=== PATIENT | female | born 1965 | race Caucasian/White ===

== ENCOUNTER 2018-09-24 08:55 | Outpatient (CLI) | payer OTHER ==
--- NOTE | 2018-09-24 10:12 | CT ---
CT ABDOMEN AND PELVIS WITH AND WITHOUT IV CONTRAST: Provided Clinical History: Renal mass on outside imaging. FINDINGS: The visualized lung bases are clear of significant opacity. There is a heterogeneously enhancing solid appearing left renal mass. This measures approximately 5.8 x 4.5 cm in greatest transverse dimensions. There are several smaller foci of diminished attenuation involving the left kidney which are too small to definitely characterize. There is a 1.2 cm hypodens e exophytic mass arising from the posterior aspect of the right kidney. This demonstrates precontrast Hounsfield units of approximately 15, venous phase Hounsfield units of approximately 24, and delayed phase Hounsfield units of approximately 19. Several smaller foci of diminished attenuation also seen involving the right kidney, too small to definitely characterized. The liver, spleen, pancreas, and adrenal glands appear unremarkable. The left renal vein demonstrates no filling defect. The delayed images demonstrate effacement of portions of the left renal collectin g system adjacent to the mass. No filling defect is clearly seen within the remainder of the renal co llecting systems, ureters, or urinary bladder. This mass abuts the medial and inferior aspects of the spleen with lack of clear fat plain between the two. There is no bowel dilatation, inflammatory fat stranding, free fluid or lymph node enlargement appare nt. The osseous structures demonstrate no concerning osteoblastic or osteolytic lesions. Changes of central hernia repair is seen. IMPRESSION: 1. Large solid left renal mass, compatible with malignancy. Urology consultation is recommended. 2. Foci of diminished attenuation involving each kidney, the majority of which are too small to defin itely characterize. There is a 1.2 cm exophytic mass arising from the posterior right kidney which pr obably reflects a mildly complicated cyst with pseudo enhancement on the post contrast images. Furthe r evaluation with ultrasound or close follow up recommended. Code T
[2018-09-24] MEDS ORDERED: ISOVUE-370 76%-LOCM 1 ML ONE (16:28)
== END 2018-09-24 08:56 | disposition home or self-care (01) ==
LOC: BICCT 08:55
PROVIDERS: ATTEND Family Medicine
DX: N28.89 Other specified disorders of kidney and ureter (principal)
CPT/HCPCS: 74178

== ENCOUNTER 2019-12-31 10:25 | Outpatient (CLI) | payer OTHER ==
--- NOTE | 2019-12-31 12:48 | CT ---
EXAM: CT ABDOMEN AND PELVIS HISTORY: Abdominal pain. Previous left nephrectomy. COMPARISON: 09/24/2018. PROCEDURE: Multiple contiguous axial images were obtained and a CT of the abdomen and pelvis with IV contrast. C oronal reformats were performed. Patient had an allergic reaction after IV contrast administration. Patient developed erythema, hives and difficulty breathing. FINDINGS: Lower Chest: Within normal limits. Vessels: Normal caliber aorta. No periaortic fat stranding. Atherosclerosis is noted in the infrarena l abdominal aorta. Heart: Normal heart size. No significant pericardial fluid. Abdomen: Portal vein:Patent. Gallbladder: Surgically absent. Liver: within normal limits. Pancreas: within normal limits. Spleen: within normal limits. Adrenals: within normal limits. Kidneys: Surgically absent left kidney. Right kidney has appropriate enhancement. Small subcentimeter hypodensity in the right renal cortex, measuring 0.7 cm cannot be further characterized. 0.4 cm hypodensity in the anterior right renal cortex near the upper pole is also noted. This lesion cannot be further characterized. Exophytic hypodensity emanating from the midpole of the right kidney measures 1.5 x 1.7 cm with an attenuation coefficient of 25 Hounsfield units. Complex cyst is favored . No evidence of a right-sided obstructive uropathy. Peritoneum: No ascites or free air, no fluid collection. Bowel: No evidence of bowel obstruction. Ileocecal junction is unremarkable. Normal caliber appendix. Scattered fecal material in a nondistended, nondilated colon. Mesentery and Retroperitoneum: Enlarged peripancreatic/periportal lymph nodes are nonspecific. These lymph nodes measure 2.3 to 2.8 cm in maximum dimension. Lymphadenopathy is similar to the previous examination. Maximum dimension previously varied between 2.3 and 3.0 cm. Abdominal Wall: There is evidence of a previous midline and right paracentral hernia repair. There is a small segment of mesenteric fat extending through the hernia repair mesh. No evidence of bowel obstruction. Pelvis: Reproductive Organs: Uterus and right adnexa are unremarkable. There is a nonspecific calcification i n the left adnexa, measuring 0.4 cm. Calcification is unchanged. Pelvis: No mass, lymphadenopathy, free air or free fluid. Bladder: within normal limits. Bones: within normal limits. IMPRESSION: 1. Patient had an allergic reaction to IV contrast. 2. Findings compatible with a selective right and left nephrectomy. 3. Stable-appearing peripancreatic and periportal lymph nodes. 4. Dehiscence of the anterior abdominal wall mesh with herniation of fat through the defect, since th e previous exam. ADDENDUM: Patient was discharged 2 hours after contrast injection and administration of 25 mg of Franklin dryl. Patient did not have any symptoms of grogginess or altered awareness. Patient was aware of her surroundings and stated that she felt better. No difficulty with regards to breathing. No reporte d symptoms of itching or hives. Given that the patient was given 25 mg of Benadryl, consultation is made with pharmacy to determine appropriateness in terms of half-life and discharge. angelo Laguna in the hospital informed list that the patient was able to be discharged from a pharmacological perspective. Transcribed Date/Time: 12/31/2019 1:08 PM
[2019-12-31] MEDS ORDERED: Iopamidol 370 76% 100 ML VIAL ONE (16:26)
== END 2019-12-31 10:26 | disposition home or self-care (01) ==
LOC: CT 10:25
PROVIDERS: ATTEND Specialist
DX: R10.84 Generalized abdominal pain (principal); T50.8X5A Adverse effect of diagnostic agents, initial encounter; Z90.5 Acquired absence of kidney
CPT/HCPCS: 74177; 80048; 81001; 85025; 85610; 87081; 93005; 93010; Q9967

== ENCOUNTER 2020-07-08 07:48 | Outpatient (CLI) | payer OTHER ==
[2020-07-08 11:34] LABS: #Eosinphils 0.4 thou/uL (0.0-0.7); #Lymphocytes 2.1 thou/uL (1.20-3.40); #Monocytes 0.6 thou/uL (0.11-0.59); #Neutrophils 3.8 thou/uL (1.40-6.50); %Basophils 0.5 % (0.0-1.0); %Eosinophils 5.8 % (0.0-10.0); %Lymphocytes 30.3 % (21.0-51.0); %Monocytes 8.7 % (0.0-10.0); %Neutrophils 54.7 % (42.0-75.0); Hemoglobin 15.1 g/dL (12.0-16.0); Mean Corpuscular HGB CONC 32.3 g/dL (32.0-36.0); Mean Corpuscular Hemoglobin 30.5 pg (27.0-31.0); Mean Corpuscular Volume 94.3 fL (78.0-98.0); Platelet Count 230 thou/uL (130-400); RBC Distribution Width 12.1 % (11.5-14.5); Red Blood Cell (RBC) Count 4.96 mill/uL (4.20-5.40); White Blood Cell (WBC) Count 6.9 thou/uL (4.8-10.8)
[2020-07-08 12:43] LABS: Anion Gap 15 mmol/L (10-20); BUN (Urea Nitrogen) 18 mg/dL (9.8-20.1); Calc. Creatinine Clearance 0 mL/min (70-130); Calcium 9.3 mg/dL (7.8-10.44); Carbon Dioxide 25 mmol/L (22-29); Chloride 102 mmol/L (98-107); Estimated GFR-MDRD 52; Glucose 162 mg/dL (70-105); Potassium 4.6 mmol/L (3.5-5.1); Sodium 137 mmol/L (136-145)
--- NOTE | 2020-07-08 16:46 | EKG ---
Test Reason : PREOP Blood Pressure : / mmHG Vent. Rate : 058 BPM Atrial Rate : 058 BPM P-R Int : 148 ms QRS Dur : 092 ms QT Int : 446 ms P-R-T Axes : 053 061 066 degrees QTc Int : 437 ms Sinus bradycardia Otherwise normal ECG No previous ECGs available Confirmed by DR. Barry LING ([id number]) on 07/08/2020 4:46:22 PM Referred By: Ronak CONKLIN Confirmed By:DR. Barry LING
[2020-07-08 17:02] LABS: SARS-CoV-2 MS2 Positive; SARS-CoV-2 N Gene Negative; SARS-CoV-2 S Gene Negative; SARS-CoV-2 by NAA Not Detected (NotDetected); SARS-CoV-2 orf1ab Negative
== END 2020-07-08 07:49 | disposition home or self-care (01) ==
LOC: LABBT 07:48
PROVIDERS: ATTEND Specialist
DX: Z01.818 Encounter for other preprocedural examination (principal); Z20.828 Contact with and (suspected) exposure to other viral communicable diseases; K43.9 Ventral hernia without obstruction or gangrene
CPT/HCPCS: 80048; 85025; 87635; 93005; 93010; U0003